=== PATIENT | female | born 1995 | race Caucasian/White ===

== ENCOUNTER → 2020-12-12 | Outpatient (CLI) | payer BC, OTHER ==
[~2020-12-12] MED LIST: COLACE 100MG C100 MG PO; HYDROCODON-ACE1 EAC6 PO; IBUPROFEN600 MG PO
[2020-12-12 12:23] LABS: HEMOGLOBIN 10.9 gm/dl (12.3-15.3); RED BLOOD COUNT 4.37 M/UL (4.00-5.10); WHITE BLOOD COUNT 9.8 K/UL (4.5-11.0)
== END ==
LOC: GENOP 11:01
PROVIDERS: Obstetrics & Gynecology
DX: Z53.8 Procedure and treatment not carried out for other reasons (principal)
CPT/HCPCS: 36415; 81001; 85025

== ENCOUNTER 2020-12-15 05:57 | Inpatient (IN) | payer BC, OTHER ==
[~2020-12-15] VITALS: Ht 167.6 cm; Wt 123.8 kg
[2020-12-15] MEDS ORDERED: COLACE 100MG C100 MG PO (08:13)
[2020-12-15] MEDS ORDERED: HYDROCODON-ACE1 EAC6 PO (08:13)
[2020-12-15] MEDS ORDERED: IBUPROFEN600 MG PO (08:13)
[2020-12-16 06:22] LABS: HEMOGLOBIN 9.9 gm/dl (12.3-15.3)
== END 2020-12-18 17:50 | disposition home or self-care (01) | DRG 788 ==
LOC: OB 05:57
PROVIDERS: ADMIT Obstetrics & Gynecology
PROC: 10D00Z1 Extraction of Products of Conception, Low, Open Approach (ICD-10-PCS; principal; 2020-12-15 07:30)
DX: O16.4 Unspecified maternal hypertension, complicating childbirth (principal); O99.214 Obesity complicating childbirth; Z20.822 Contact with and (suspected) exposure to COVID-19; O34.211 Maternal care for low transverse scar from previous cesarean delivery; Z3A.39 39 weeks gestation of pregnancy; Z37.0 Single live birth; Z83.3 Family history of diabetes mellitus; Z82.49 Family history of ischemic heart disease and other diseases of the circulatory system; Z83.42 Family history of familial hypercholesterolemia
CPT/HCPCS: 36415; 81001; 82800; 85014; 85018; 85025; C9113; J0690; J1200; J1650; J1885; J2274; J2300; J2405; J2590; J3010; J7120; U0003